=== PATIENT | female | born 2000 | race Caucasian/White ===

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

== ENCOUNTER 2021-09-29 23:16 | Emergency (ER) | payer OTHER ==
[~2021-09-29] VITALS: Ht 165.1 cm; Wt 71.7 kg
[2021-09-29 23:21] VITALS: BP 137/72
--- NOTE | 2021-09-29 23:30 | NUR ---
COVID-19 and flu swabs collected and sent to lab.
--- NOTE | 2021-09-30 00:51 | NUR ---
Dr. Allison examining patient.
[2021-09-30 01:04] VITALS: BP 128/72
--- NOTE | 2021-09-30 01:04 | NUR ---
Patient discharged with v/s stable. Written and verbal after care instructions given and explained. Patient verbalized understanding. Ambulatory with . All questions addressed prior to discharge. Advised to follow up with PMD.
== END 2021-09-30 01:04 | disposition home or self-care (01) ==
LOC: MED 23:16
DX: U07.1 COVID-19 (principal); J45.909 Unspecified asthma, uncomplicated; Z72.89 Other problems related to lifestyle
CPT/HCPCS: 99283

== ENCOUNTER 2023-01-29 12:55 | Emergency (ER) | payer OTHER ==
[~2023-01-29] VITALS: Ht 162.6 cm; Wt 74.4 kg
[2023-01-29 13:02] VITALS: BP 109/80; PULSE 95; RESP 20; TEMP 102.6; O2SAT 98
[2023-01-29] MEDS ORDERED: ACETAMINOPHEN EXTRA STRENGTH 500 MG TAB PO ONE (13:50)
[2023-01-29] MEDS ORDERED: DEXAMETHASONE 10 MG/ML VIAL IM ONE (14:00)
[2023-01-29] MEDS ORDERED: IBUP-2213 PO (14:02)
[2023-01-29] MEDS ORDERED: PROM118S5 PO (14:02)
[2023-01-29 14:44] VITALS: RESP 20; TEMP 99.6
[2023-01-29 15:24] LABS: FLU A ANTIGEN negative (NEGATIVE); FLU B ANTIGEN NEGATIVE (NEGATIVE)
== END 2023-01-29 14:44 | disposition home or self-care (01) ==
LOC: MED 12:55
DX: J02.9 Acute pharyngitis, unspecified (principal); J45.909 Unspecified asthma, uncomplicated; Z79.899 Other long term (current) drug therapy; Z79.1 Long term (current) use of non-steroidal anti-inflammatories (NSAID)
CPT/HCPCS: 87081; 87804; 96372; 99283; J1100

== ENCOUNTER 2023-03-25 11:27 | Emergency (ER) | payer OTHER ==
[~2023-03-25] VITALS: Ht 162.6 cm; Wt 75.7 kg
[~2023-03-25 11:27] MED LIST: IBUP-2213 PO; PROM118S5 PO
[2023-03-25 11:39] VITALS: BP 110/59; PULSE 73; RESP 18; TEMP 98.1; O2SAT 99
[2023-03-25] MEDS ORDERED: KETOROLAC 30 MG/ML VIAL IM ONE (12:25)
[2023-03-25] MEDS ORDERED: CYCL-711 PO (13:07)
[2023-03-25] MEDS ORDERED: IBUP-2213 PO (13:07)
== END 2023-03-25 13:45 | disposition home or self-care (01) ==
LOC: MED 11:27
DX: M47.896 Other spondylosis, lumbar region (principal); J45.909 Unspecified asthma, uncomplicated; Z79.899 Other long term (current) drug therapy
CPT/HCPCS: 72100; 72170; 96372; 99284; J1885